=== PATIENT | female | born 1975 | race Caucasian/White ===

== ENCOUNTER 2016-04-10 02:29 | Emergency (ER) | payer MEDICAID ==
--- NOTE | 2016-04-10 02:39 | EDPHY ---
H & P Stated Complaint: ABD PAIN, VOMITING, BACK PAIN, STARTED 2300 HPI/ROS: HPI CHIEF COMPLAINT: Nausea, vomiting, headache, abdominal discomfort, recent URI HISTORY OF PRESENT ILLNESS: This patient very pleasant 41-year-old female she denies any significant medical or surgical history she presents to the emergency room with nausea, vomiting, low back pain, abdominal upset, recent URI and a headache. Patient tells me that around 11:00 p.m. tonight she started developed a bitemporal headache described as a throbbing sensation it was not thunderclap it is not the worst headache of her life shortly after that she developed nausea and vomiting. Patient tells me that she has been sick recently with upper respiratory tract infection. She denies fever, cough, chest pain or shortness of breath. She tells me since 11:00 p.m. she has vomited 4 times. She denies diarrhea. She tells me the vomit is nonbloody nonbilious. She denies significant abdominal pain she does tells me that her abdomen feels upset she states the main reason that she came to the emergency room this evening is due to the vomiting she felt dehydrated that her mouth was dry and she was concerned that maybe her kidneys may be damage from pain dehydrated. She denies urinary symptoms. She does tell me that she is currently on her menstrual cycle. Past Medical History: No significant medical history Past Surgical History: no significant surgical history Social History: denies use of drugs, tobacco products does endorse occasional alcohol use had 2 drinks this evening. Family History: Noncontributory ROS REVIEW OF SYSTEMS: A comprehensive 10 point review of systems is otherwise negative aside from elements mentioned in the history of present illness. Exam Constitutional appears well nontoxic no acute distress triage nursing summary reviewed, vital signs reviewed, awake/alert. Eyes normal conjunctivae and sclera, EOMI, PERRLA. HENT normal inspection, atraumatic, moist mucus membranes, no epistaxis, neck supple/ no meningismus, no raccoon eyes. Respiratory clear to auscultation bilaterally, normal breath sounds, no respiratory distress, no wheezing. Cardiovascular rate normal, regular rhythm, no murmur, no edema, distal pulses normal. Gastrointestinal soft, non-tender, no rebound, no guarding, normal bowel sounds, no distension, no pulsatile mass. Genitourinary no CVA tenderness. Musculoskeletal no midline vertebral tenderness, full range of motion, no calf swelling, no tenderness of extremities, no meningismus, good pulses, neurovascularly intact. Skin pink, warm, & dry, no rash, skin atraumatic. Neurologic no meningeal signs specifically no neck pain no stiff neck, full range of motion, supple, awake, alert and oriented x 3, AAOx3, moves all 4 extremities equally, motor intact, sensory intact, CN II-XII intact, normal cerebellar, normal vision, normal speech. Psychiatric normal mood/affect. Heme/Lymph/Immune no lymphadenopathy. Differential Diagnosis: includes but is not limited to in a particular order dehydration, electrolyte abnormality, upper respiratory tract infection, viral syndrome, influenza, UTI, migraine headache, tension headache, doubt intracranial bleed given normal neurological exam, doubt meningitis given no fever or stiff neck or meningeal signs Medical Decision Making: This patient had an IV established be medicated with IV fentanyl for pain control IV Zofran for nausea she received IV fluids will perform a CT scan of her head due to her headache and never having imaging before with associated nausea vomiting I doubt intracranial bleed or tumor. We will check blood work including electrolytes urinalysis and testing re -evaluate. Re-evaluation: EKG interpretation by me on record in [employer] system. Impression time of EKG 3:12 a.m. this is sinus tachycardia rate of [address] elevation or significant ST depression their are borderline T-wave abnormalities seen in lead 3 lead AVF V4 V3 V5. Otherwise unremarkable EKG. 0434: Re-examination at this time patient states she initially felt better with her nausea and pain however now she is developing more abdominal pain with worsening nausea. She requesting more nausea and pain medicine. She completed 2 L of normal saline I have reviewed her blood work that her reassuring urinalysis does show small amount of infection. I did send for a culture. Due to ongoing nausea and worsening abdominal pain I did reexamine her abdomen is slightly tender I will perform a CT abdomen pelvis with IV contrast to rule out significant intra-abdominal pathology. CT scan of the head without IV contrast The results of the study are negative for anything acute specifically no bleed or tumor The study was read by Dr. Richter. I viewed the images myself on the PACS system. CT scan of the abdomen pelvis with IV contrast . The results of the study are shows constipation otherwise no acute inflammatory process normal appendix The study was read by Dr. Richter I viewed the images myself on the PACS system. 0645: re-examination at this time this patient is resting comfortably. I have ordered her Keflex p. o. dose here. She p.o. challenge well without difficulty her abdomen is soft nontender. She does feel better after IV fluids, IV Dilaudid and IV Phenergan she is agreeable going home. Her CTs and blood work have been reviewed I am not finding anything acute to cause her nausea vomiting she does have leukocyte esterase in her urine I have sent this for culture given her dose of Keflex here. I will allow her to go home with a prescription for Zofran and Keflex. She understands return to the emergency room she develops any worsening symptoms questions or concerns this includes worsening vomiting, fever, abdominal pain, or severe headache. I did go over test results she is comfortable plan on being discharged. Prescription for Keflex and Zofran. Source: Patient - Personal History LMP (Females 10-55): Now Current Tetanus/Diphtheria Vaccine: Yes - Medical/Surgical History Hx Asthma: No Hx Chronic Respiratory Disease: No Hx Diabetes: No Hx Cardiac Disease: No Hx Renal Disease: No Hx Cirrhosis: No Hx Alcoholism: No Hx HIV/AIDS: No Hx Splenectomy or Spleen Trauma: No Other PMH: DENIES - Social History Smoking Status: Never smoked Constitutional: Initial Vital Signs Temperature (C) 37.3 C 04/10/16 02:32 Heart Rate 112 H 04/10/16 02:32 Respiratory Rate 18 04/10/16 02:32 Blood Pressure 119/79 04/10/16 02:32 O2 Sat (%) 97 04/10/16 02:32 O2 Delivery Mode Room Air Allergies/Adverse Reactions: No Known Allergies Allergy (Unverified 04/10/16 02:31) Home Medications: Medication Instructions Recorded Cephalexin [Keflex] 500 mg PO Q6H #28 cap 04/10/16 Nuva Ring 04/10/16 Ondansetron HCl [Zofran] 4 mg PO Q4-6PRN PRN #10 tablet 04/10/16 Medical Decision Making - Data Points Laboratory Results: Laboratory Results 04/10/16 02:53 04/10/16 02:53 04/10/16 04/10/16 04/10/16 03:50 03:37 02:53 WBC 5.66 10^3/uL (3.80-9.50) RBC 4.78 10^6/uL (4.18-5.33) Hgb 13.7 g/dL (12.6-16.3) Hct 41.0 % (38.0-47.0) MCV 85.8 fL (81.5-99.8) MCH 28.7 pg (27.9-34.1) MCHC 33.4 g/dL (32.4-36.7) RDW 12.5 % (11.5-15.2) Plt Count 242 10^3/uL (150-400) MPV 10.1 fL (8.7-11.7) Neut % (Auto) 92.4 H % (39.3-74.2) Lymph % (Auto) 3.2 L % (15.0-45.0) [place] % (Auto) 3.4 L % (4.5-13.0) Eos % (Auto) 0.4 L % (0.6-7.6) Baso % (Auto) 0.4 % (0.3-1.7) Nucleat RBC Rel Count 0.0 % (0.0-0.2) Absolute Neuts (auto) 5.24 10^3/uL (1.70-6.50) Absolute Lymphs (auto) 0.18 L 10^3/uL (1.00-3.00) Absolute Monos (auto) 0.19 L 10^3/uL (0.30-0.80) Absolute Eos (auto) 0.02 L 10^3/uL (0.03-0.40) Absolute Basos (auto) 0.02 10^3/uL (0.02-0.10) Absolute Nucleated RBC 0.00 10^3/uL (0-0.01) Immature Gran % 0.2 % (0.0-1.1) Immature Gran # 0.01 10^3/uL (0.00-0.10) Sodium 140 mEq/L (134-144) Potassium 3.9 mEq/L (3.5-5.2) Chloride 104 mEq/L (97-110) Carbon Dioxide 24 mEq/l (22-31) Anion Gap 12 mEq/L (8-16) BUN 14 mg/dL (7-23) Creatinine 0.9 mg/dL (0.6-1.0) Estimated GFR > 60 Glucose 120 H mg/dL (70-100) Calcium 8.9 mg/dL (8.5-10.4) Total Bilirubin 0.5 mg/dL (0.1-1.4) Conjugated Bilirubin 0.2 mg/dL (0.0-0.5) Unconjugated Bilirubin 0.3 mg/dL (0.0-1.1) AST 25 IU/L (14-46) ALT 26 IU/L (9-52) Alkaline Phosphatase 62 IU/L (38-126) Troponin I 0.013 ng/mL (0-0.034) Total Protein 7.8 g/dL (6.3-8.2) Albumin 4.2 g/dL (3.5-5.0) Lipase 139.0 IU/L (23-300) Beta HCG, Qual NEGATIVE Urine Color YELLOW Urine Appearance CLEAR Urine pH 6.0 (5.0-7.5) Ur Specific Drifting 1.016 (1.002-1.030) Urine Protein NEGATIVE (NEGATIVE) Urine Ketones NEGATIVE (NEGATIVE) Urine Blood 2+ H (NEGATIVE) Urine Nitrate NEGATIVE (NEGATIVE) Urine Bilirubin NEGATIVE (NEGATIVE) Urine Urobilinogen NEGATIVE EU (0.2-1.0) Ur Leukocyte Esterase 1+ H (NEGATIVE) Urine RBC 10-15 H /hpf (0-3) Urine WBC 1-3 /hpf (0-3) Ur Epithelial Cells TRACE /lpf (NONE-1+) Urine Mucus TRACE /lpf (NONE-1+) Ur Culture Indicated? INDICATED H (NI) Urine Glucose NEGATIVE (NEGATIVE) Influenza Typ A,B (DFA) NEGATIVE FOR FLU (NEGATIVE) Medications Given: Discontinued Medications Fentanyl (Sublimaze) 50 mcg IVP EDNOW ONE Stop: 04/10/16 02:48 Last Admin: 04/10/16 03:02 Dose: 50 mcg Hydromorphone HCl (Dilaudid) 0.5 mg IVP EDNOW ONE Stop: 04/10/16 04:30 Last Admin: 04/10/16 04:39 Dose: 0.5 mg Sodium Chloride (Ns) 2,000 mls @ 0 mls/hr IV ONCE ONE PRN Reason: Wide Open Stop: 04/10/16 02:48 Last Admin: 04/10/16 03:02 Dose: 2,000 mls Sodium Chloride (Ns) 1,000 mls @ 0 mls/hr IV ONCE ONE PRN Reason: Wide Open Stop: 04/10/16 04:35 Last Admin: 04/10/16 04:48 Dose: 1,000 mls Ondansetron HCl (Zofran) 4 mg IVP EDNOW ONE Stop: 04/10/16 02:48 Last Admin: 04/10/16 03:02 Dose: 4 mg Departure - Departure Disposition: Home, Routine, Self-Care Clinical Impression: UTI (urinary tract infection) Qualifiers: Urinary tract infection type: acute cystitis Hematuria presence: without hematuria Qualifier Code: (N30.00) Acute cystitis without hematuria Abdominal pain Qualifiers: Abdominal location: generalized Qualifier Code: (R10.84) Generalized abdominal pain Nausea and vomiting Qualifiers: Vomiting type: unspecified Vomiting Intractability: non-intractable Qualifier Code: (R11.2) Nausea with vomiting, unspecified Condition: Good Instructions: Abdominal Pain (ED), Acute Nausea and Vomiting (ED), Urinary Tract Infection in Women (ED) Additional Instructions: 1. Please stay well-hydrated drink lots of fluids. 2. return to the emergency room if he develops any worsening symptoms questions or concerns. This includes severe headache, vomiting, fever abdominal pain. 3. you do have a urinary tract infection that is very small I will start her on Keflex please take her antibiotic as prescribed I have also given a prescription for Zofran for nausea. 4. Return immediately to the emergency room if you have very high fever or worsening symptoms. Referrals: [place],. [Primary Care Provider] - As per Instructions Prescriptions: Cephalexin [Keflex] 500 mg PO Q6H #28 cap Ondansetron HCl [Zofran] 4 mg PO Q4-6PRN PRN #10 tablet PRN Reason: Nausea/Vomiting, Use 1st
[2016-04-10] MEDS ORDERED: NS 2,000 ML IV ONE (02:47)
[2016-04-10] MEDS ORDERED: fentaNYL 100 MCG/2 ML INJ IVP ONE (02:47)
[2016-04-10] MEDS ORDERED: ONDANSETRON 4 MG/2 ML VIAL IVP ONE (02:47)
[2016-04-10 03:00] LABS: % IMMATURE GRANULYOCYTES 0.2 % (0.0-1.1); ABSOLUTE IMMATURE GRANULOCYTES 0.01 10^3/uL (0.00-0.10); ADD DIFF? NO; ADD MORPH? NO; ADD SCAN? NO; ATYPICAL LYMPHOCYTE FLAG 10 (0-99); FRAGMENT RBC FLAG 0 (0-99); HEMOGLOBIN 13.7 g/dL (12.6-16.3); LEFT SHIFT FLG 0 (0-99); LIPEMIA HEMOLYSIS FLAG 80 (0-99); MEAN CELL HEMOGLOBIN 28.7 pg (27.9-34.1); MEAN CELL HEMOGLOBIN CONCENTR. 33.4 g/dL (32.4-36.7); MEAN CELL VOLUME 85.8 fL (81.5-99.8); MEAN PLATELET VOLUME 10.1 fL (8.7-11.7); PLATELET CLUMPS FLAG 10 (0-99); PLATELET COUNT 242 10^3/uL (150-400); RED BLOOD CELL COUNT 4.78 10^6/uL (4.18-5.33); RED CELL DISTRIBUTION WIDTH 12.5 % (11.5-15.2)
--- NOTE | 2016-04-10 03:13 | CPEKG ---
Heart Rate: 101 RR Interval: 594 P-R Interval: 192 QRSD Interval: 90 QT Interval: 348 QTC Interval: 452 P Dearing: 66 QRS Dearing: 86 T Wave Dearing: 30 EKG Severity - BORDERLINE ECG - EKG Impression: SINUS TACHYCARDIA EKG Impression: BORDERLINE T WAVE ABNORMALITIES Electronically Signed By: Hernan Jamison 10-Apr-2016 07:02:04
[2016-04-10 03:16] LABS: ALANINE AMINOTRANSFERASE 26 IU/L (9-52); ALBUMIN 4.2 g/dL (3.5-5.0); ALKALINE PHOSPHATASE 62 IU/L (38-126); ANION GAP 12 mEq/L (8-16); ASPARTATE AMINOTRANSFERASE 25 IU/L (14-46); BILIRUBIN,TOTAL 0.5 mg/dL (0.1-1.4); BILIRUBIN-CONJUGATED 0.2 mg/dL (0.0-0.5); BILIRUBIN-UNCONJUGATED 0.3 mg/dL (0.0-1.1); CALCIUM 8.9 mg/dL (8.5-10.4); CARBON DIOXIDE 24 mEq/l (22-31); CHLORIDE 104 mEq/L (97-110); CREATININE 0.9 mg/dL (0.6-1.0); GLOMERULAR FILTRATION RATE > 60; GLUCOSE 120 mg/dL (70-100); POTASSIUM 3.9 mEq/L (3.5-5.2); SODIUM 140 mEq/L (134-144); TOTAL PROTEIN 7.8 g/dL (6.3-8.2)
[2016-04-10 03:26] LABS: TROPONIN I 0.013 ng/mL (0-0.034)
[2016-04-10 03:58] LABS: COLOR YELLOW; LEUKOCYTE ESTERASE,URINE 1+ (NEGATIVE); NITRITE,URINE NEGATIVE (NEGATIVE)
[2016-04-10 04:04] LABS: MUCUS TRACE /lpf (NONE-1+)
[2016-04-10 04:12] VITALS: RESP 16
[2016-04-10] MEDS ORDERED: HYDROmorphONE/DILAUDID 1 MG/ML SYR IVP ONE (04:29)
[2016-04-10] MEDS ORDERED: PROMETHAZINE HCL 25 MG/ML VIAL IVP PRN (04:29)
[2016-04-10] MEDS ORDERED: IOPAMIDOL (ISOVUE-300) 50 ML VIAL IV ONE (04:34)
[2016-04-10] MEDS ORDERED: NS 1,000 ML IV ONE (04:34)
[2016-04-10] MEDS ORDERED: CEPHALEXIN 500 MG CAP PO ONE (06:45)
[2016-04-10] MEDS ORDERED: ACETAMINOPHEN 500 MG TAB PO ONE (06:52)
[2016-04-10 07:13] VITALS: BP 116/65; PULSE 104; TEMP 100.9; O2SAT 94
--- NOTE | 2016-04-10 09:03 | CT ---
CT Head (Without Contrast) April 10, 2016 at 0322 hours Indication: Headache, nausea, vomiting.. Technique: Standard noncontrast head CT protocol utilizing 5 mm thick collimated slices and field of view 23 cm. Dose reduction techniques were utilized. Findings: The brain is normally developed. No intracranial hemorrhage, mass lesion, swelling, or ex traaxial fluid collection. The ventricles are normal caliber and midline. The last-white matter has n ormal attenuation. Mucous membrane thickening is seen in the left maxillary sinus and ethmoid sinus. No air-fluid level is seen in the left maxillary sinus. The bones are unremarkable. Impression: Left maxillary sinusitis and mild underlying chronic sinusitis related change. Otherwise unremarkable CT of the head without contrast. Comment: Case was discussed with Dr. Hernan Miller .
--- NOTE | 2016-04-10 10:52 | CT ---
CT Scan of the Abdomen and Pelvis (With Contrast) 04/10/2016 4:48 Indication: Abdominal pain. Nausea and vomiting. Technique: 85 mL of Isovue 300 were given intravenously by machine power injection. Oral contrast wa s not administered. Multidetector helical CT imaging was performed from the diaphragm to the symphysi s pubis. Dose reduction techniques were utilized. Findings: Abdomen: The lung bases are clear. There appears to be some focal fatty infiltration in the left lobe of the liver. No suspicious liver lesion is visualized. Gallbladder is unremarkable. Pancreas is unr emarkable. Spleen is unremarkable. Both adrenal glands are normal in size and appearance. Both kidney s enhance normally without evidence for mass or hydronephrosis. No significant abdominal lymphadenopa thy. Pelvis: Moderate stool is seen in the colon. No evidence for diverticulitis. Appendix is normal in si ze. No evidence for small bowel obstruction. Couple phleboliths are seen in the pelvis. No evidence f or bladder calculus. Impression: Moderate constipation. Otherwise unremarkable. Results discussed with Dr. Hernan Jamison on April 10, 2016 at 0501 hours.
== END 2016-04-10 07:13 | disposition home or self-care (01) ==
DX: R11.2 Nausea with vomiting, unspecified (principal); N30.00 Acute cystitis without hematuria; B96.89 Other specified bacterial agents as the cause of diseases classified elsewhere
CPT/HCPCS: 96374; J1170; J2405; J2550; J3010; Q9967

== ENCOUNTER → 2016-12-13 | Outpatient (CLI) | payer OTHER | LOC: FIMAGING 12:42 | PROVIDERS: ATTEND Obstetrics & Gynecology | DX: Z12.31 Encounter for screening mammogram for malignant neoplasm of breast (principal) | CPT/HCPCS: G0202 ==